=== PATIENT | female | born 1990 | race Caucasian/White ===

== ENCOUNTER 2021-03-16 10:03 | Emergency (ER) | payer OTHER ==
[2021-03-16 10:12] VITALS: BP 136/67
--- NOTE | 2021-03-16 10:20 | ED Physician Documentation ---
PD HPI OPHTHO - Stated complaint Stated Complaint: BLURRED VISION, PX IN L EYE - Chief complaint Chief Complaint: Heent - History obtained from History obtained from: Patient - Additional information Additional information: 31-year-old woman with past medical history of right eye astigmatism, not a contact lens or glasses wearer, presents with left eye irritation upon waking this morning as well as some blurred vision in the left eye. She states that last night she was driving and pulled over and she thinks she may have gotten something in her eye, but it didn't hurt until waking this am. Review of Systems Eyes: reports: Decreased vision, Irritation. denies: Photophobia, Discharge PD PAST MEDICAL HISTORY - Present Medications Home Medications: Ambulatory Orders Medication Instructions Recorded Confirmed Ofloxacin 0.3% Ophth Drops 1 drops OPTH Q4H #5 ml 03/16/21 [Ocuflox 0.3% Ophth Drops] PD ED PE NORMAL - Vitals Vital signs reviewed: Yes - General General: Alert and oriented X 3, No acute distress, Well developed/nourished - HEENT HEENT: Atraumatic, PERRL, EOMI, Other (No foreign body. Fluorescein stain revealed left corneal abrasion to the center of the eye 1 mm in diameter) Results - Vitals Vitals: Vital Signs - 24 hr 03/16/21 10:07 Temperature 36.9 C Heart Rate 72 Respiratory 16 Rate Blood Pressure 136/67 H O2 Saturation 99 Oxygen O2 Source Room air PD MEDICAL DECISION MAKING - ED course ED course: 31-year-old woman presented with corneal abrasion. Antibiotic eyedrops prescribed.Return precautions given. Departure - Departure Disposition: 01 Home, Self Care Clinical Impression: Corneal abrasion Condition: Good Instructions: ED Eye Injury Corneal Abrasion Prescriptions: Ofloxacin 0.3% Ophth Drops [Ocuflox 0.3% Ophth Drops] 1 drops OPTH Q4H #5 ml Comments: You were seen in the emergency department for corneal abrasion on your left eye. Take your antibiotic eyedrops as prescribed and the lubricating ointment at night. Return to the emergency department if you have any new or worsening symptoms or other concerns. Follow-up with your primary doctor.
== END 2021-03-16 10:50 | disposition home or self-care (01) ==
LOC: ED 10:03
DX: S05.02XA Injury of conjunctiva and corneal abrasion without foreign body, left eye, initial encounter (principal); X58.XXXA Exposure to other specified factors, initial encounter
CPT/HCPCS: 99281; 99282